=== PATIENT | female | born 1960 | race Caucasian/White ===

== ENCOUNTER 2024-02-24 16:54 | Emergency (ER) | payer BC, SELFPAY ==
[2024-02-24 16:59] VITALS: BP 191/72
[2024-02-24 17:26] VITALS: BMI 39.2
--- NOTE | 2024-02-24 18:00 | ED.GENMED ---
History of Present Illness
General
Chief Complaint: Musculo-Skeletal Complaint
Time Seen by Provider: 02/24/24 17:47
History of Present Illness
History of Present Illness:
63-year-old female presents to the emergency department for evaluation of a presumably nontraumatic area of ecchymosis to the right medial thigh first noticed this morning. She states she recently recovered from COVID-19 and is concerned about a
blood clot. Denies any leg swelling or calf pain. No history of DVT. Denies any recent prolonged immobilization.
Past History
Past History
ED Past Medical History: None
ED Past Surgical History: Cholecystectomy
Social History
Tobacco: Non-smoker
Alcohol: None
Drug: None
Personal:
Living: with family
Employment: Employed (Hairdresser)
Family History
Family History: Other (Noncontributory)
Review of Systems
Review of Systems
Allergies reviewed?: Yes
All Other Systems: ROS reviewed and negative except as documented in HPI and ROS
Phy Exam
Physical Exam
Physical Exam:
GEN: Well appearing, NAD, WDWN
HEENT: Oral mucosa moist, no scleral icterus
Cardiac: Regular rate
Lung: No respiratory distress, no tachypnea
MSK: No gross deformity or injuries
Skin: Good color, no pallor or jaundice, no rashes. There is an ecchymotic area approximately quarter sized to the right distal medial thigh, no palpable venous cord, no induration or erythema, no calf swelling
Neuro: AO x3, moves all extremities freely
Psych: Calm, cooperative
Course
Vital Signs
Initial and Last Documented VS:
Initial Vital Signs
Temp Pulse Resp BP Pulse Ox
98.8 F 95 17 191/72 99
02/24/24 16:59 02/24/24 16:59 02/24/24 16:59 02/24/24 16:59 02/24/24 16:59
Last Documented Vital Signs
Temp Pulse Resp BP Pulse Ox
98.8 F 95 17 191/72 99
02/24/24 16:59 02/24/24 16:59 02/24/24 16:59 02/24/24 16:59 02/24/24 16:59
MDM/Problems Addressed
MDM/Problems Addressed:
Likely a nontraumatic ecchymosis versus localized area of superficial thrombophlebitis. Regardless I have no clinical concern for DVT. Recommend NSAIDs and warm compresses
*Critical Care Note
Total Time (30-74mins, 75-104mins- exclusive of procedures): Not Applicable
ED Attending Note
-
Portions of this chart may have been created with voice recognition software.� Occasional wrong word or��sound alike� substitutions may have occurred due to the inherent limitations of voice recognition software.
Discharge Plan
Departure
Patient Disposition: Home (Routine Discharge)
Date of Disposition: 02/24/24
Time of Disposition: 18:00
Patient with high blood pressure during this ER visit?: No
Discharge Problem:
Superficial bruising of thigh
Instructions: Phlebitis (DC)
Referrals:
Lisa Wade, DO [Family Provider] -
Activity Restrictions/Additional Instructions:
Take either 325mg aspirin once daily or 600mg ibuprofen 3 times per day for 10 days
Warm compresses to the area
Interventions
Interventions:
*Risk Screen - Suicide Last Done: 02/24/24 17:24
*General Assessment Last Done: 02/24/24 17:24
*Neglect/Abuse Screening Last Done: 02/24/24 17:24
ED- Fall Risk Assessment Last Done: 02/24/24 17:24
*ED COVID-19 Vaccine History Last Done: 02/24/24 17:24
*Nursing Disposition Last Done: 02/24/24 18:24
ED-Musculoskeletal Assessment Last Done: 02/24/24 17:25
Discharge Date and Time
Discharge Date/Time: 02/24/24 18:24
Print Language: PASHTO
== END 2024-02-24 18:24 | disposition home or self-care (01) ==
LOC: EMR 16:54
PROVIDERS: EMERGENCY PHYSICIAN Emergency Medicine; FAMILY PHYSICIAN Internal Medicine
DX: S70.11XA Contusion of right thigh, initial encounter (principal); X58.XXXA Exposure to other specified factors, initial encounter
CPT/HCPCS: 99282